=== PATIENT | male | born 1945 | race Caucasian/White ===

== ENCOUNTER 2020-03-28 07:34 | Observation (INO) | payer MEDICARE, OTHER ==
[~2020-03-28] VITALS: Ht 172.7 cm; Wt 59.3 kg
[2020-03-28] MEDS ORDERED: GABA300 PO (07:53)
[2020-03-28] MEDS ORDERED: LOSA25 PO (07:54)
[2020-03-28] MEDS ORDERED: TAMS.4ER PO (07:54)
[2020-03-28 08:17] LABS: BASOPHILS ABSOLUTE AUTO 0.08 K/mm3 (0.00-0.23); BASOPHILS PERCENT AUTO 1 % (0-2); EOSINOPHILS ABSOLUTE AUTO 0.04 K/mm3 (0.00-0.68); EOSINOPHILS PERCENT AUTO 0 % (0-6); Hematocrit 40.9 % (37.0-53.0); IMMATURE GRAN ABSOLUTE AUTO 0.04 K/mm3 (0.00-0.10); IMMATURE GRAN PERCENT AUTO 0 % (0-1); LYMPHOCYTES ABSOLUTE AUTO 1.11 K/mm3 (0.84-5.20); LYMPHOCYTES PERCENT AUTO 8 % (21-46); MONOCYTES ABSOLUTE AUTO 1.18 K/mm3 (0.16-1.47); MONOCYTES PERCENT AUTO 8 % (4-13); Mean Corpuscular HGB Conc 31.8 g/dL (31.5-36.5); Mean Corpuscular Volume 91 fL (80-100); Mean Platelet Volume 8.5 fL (9.1-12.4); NEUTROPHILS ABSOLUTE AUTO 11.84 K/mm3 (1.96-9.15); NEUTROPHILS PERCENT AUTO 83 % (41-73); Platelet Count 225 K/mm3 (150-400); RDW Coefficient Variation 13.5 % (11.7-14.2); RDW Standard Deviation 45.1 fL (35.1-46.3); Red Blood Cell Count 4.48 M/mm3 (4.30-5.90); White Blood Cell Count 14.29 K/mm3 (4.00-11.30)
[2020-03-28 08:36] LABS: Alanine Aminotransfer (ALT/SGP 18 U/L (12-78); Albumin, Blood 3.6 g/dL (3.4-5.0); Albumin/Globulin Ratio 0.9 (0.8-1.8); Alk Phos 88 U/L (50-136); Anion Gap 4 mmol/L (6-16); Aspartate Aminotrans (AST/SGOT 21 U/L (12-37); Blood Urea Nitrogen 24 mg/dL (8-24); Bun/Creatinine Ratio 29.1 (12.0-20.0); CO2, Blood 33 mmol/L (21-32); Calcium, Blood 9.8 mg/dL (8.5-10.1); Chloride, Blood 108 mmol/L (98-108); Creatinine, Blood 0.83 mg/dL (0.60-1.20); Globulin, Blood 4.1 g/dL (2.2-4.0); Glomerular Filtration Rate >60 (60-); Glucose, Blood 109 mg/dL (70-99); Potassium, Blood 3.9 mmol/L (3.5-5.5); Sodium, Blood 145 mmol/L (136-145); Total Protein, Blood 7.7 g/dL (6.4-8.2)
[2020-03-28] MEDS ORDERED: MIRT15 PO (13:01)
[2020-03-28] MEDS ORDERED: FLUDROCORTISON0.1 MG PO (13:02)
--- NOTE | 2020-03-28 16:27 | NUR ---
TRANSFER PT ARRIVED TO THE MEDICAL FLOOR FROM THE ER AT 1510, VIA [facility], PT IS ALERT YELLS OUT IN PAIN WITH TRANSFERS AND POSITION CHANGES, THE PT WAS ORIENTED TO THE CALL SYSTEM, THE PT WAS GIVEN DILAUDID FOR PAIN WITH GOOD RESULTS, THE PT ATTEMPTED TO HAVE A BM ON THE BSC WITH NO RESULT, A SUPPOSITORY WAS GIVEN THE PT IS RESTING/SLEEPING AT THIS TIME, WILL TRY ENEMA SOON IF NO RESULTS FROM SUPP, CALL LIGHT IN REACH
--- NOTE | 2020-03-28 17:44 | NUR ---
PT IS A/OX3, PLEASANT AND COOPERATIVE, [place], PT WAS A NEW ADMIT, PT IS HAVING RECTAL PAIN 10/10 DUE TO CONSTIPATION A SUPPOSITORY WAS TRIED WITH NO RESULTS WILL TRY THE ENEMA NOW, PT WAS GIVEN DILAUDID X1 SO FAR THIS SHIFT WITH GOOD RESULT, PT APPEARS TO BE BREATHING EASILY AT THIS TIME CALL LIGHT IN REACH, WILL CONTINUE TO MONITOR AND ASSESS FOR CHANGES
[2020-03-28 18:10] LABS: Source, Urine Clean Catch
[2020-03-28 18:13] LABS: Appearance, Urine Hazy (Clear); Bilirubin, Urine Neg (Neg); Blood, Urine 3+ (Neg); Color, Urine Yellow (P-Yellow); Glucose Qualitative, Urine Neg (Neg); Ketones, Urine 3+ (Neg); Leukocyte Esterase, Urine 3+ (Neg); Nitrite, Urine Neg (Neg); Protein, Urine 2+ (Neg); Urobilinogen, Urine NORM (Normal)
[2020-03-28 18:26] LABS: Calcium Oxalate Crystals Rare /hpf; White Blood Cells, Urine TNTC /hpf (0-5)
[2020-03-28 18:27] LABS: Bacteria Few /hpf; Squamous Epithelial Cells Rare /hpf (Few); Transitional Epithelial Cells Rare /hpf (0-Rare)
--- NOTE | 2020-03-28 20:52 | NUR ---
SPOKE W/HOSPITALIST PONCHO BLEDSOE REGARDING PT NPO STATUS AND ORDERS FOR PO COLACE AND MIRALAX. PONCHO STATES OK TO GIVE COLACE W/ SMALL SIP OF WATER, BUT HOLD MIRALAX. NOTED.
[2020-03-29 05:09] LABS: BASOPHILS ABSOLUTE AUTO 0.07 K/mm3 (0.00-0.23); BASOPHILS PERCENT AUTO 0 % (0-2); EOSINOPHILS ABSOLUTE AUTO 0.02 K/mm3 (0.00-0.68); EOSINOPHILS PERCENT AUTO 0 % (0-6); Hematocrit 40.2 % (37.0-53.0); Hemoglobin 12.4 g/dL (13.5-17.5); IMMATURE GRAN ABSOLUTE AUTO 0.04 K/mm3 (0.00-0.10); IMMATURE GRAN PERCENT AUTO 0 % (0-1); LYMPHOCYTES ABSOLUTE AUTO 1.24 K/mm3 (0.84-5.20); LYMPHOCYTES PERCENT AUTO 8 % (21-46); MONOCYTES ABSOLUTE AUTO 1.14 K/mm3 (0.16-1.47); MONOCYTES PERCENT AUTO 7 % (4-13); Mean Corpuscular HGB 28.6 pg (26.0-34.0); Mean Corpuscular HGB Conc 30.8 g/dL (31.5-36.5); Mean Corpuscular Volume 93 fL (80-100); Mean Platelet Volume 9.1 fL (9.1-12.4); NEUTROPHILS ABSOLUTE AUTO 13.69 K/mm3 (1.96-9.15); NEUTROPHILS PERCENT AUTO 85 % (41-73); Platelet Count 191 K/mm3 (150-400); RDW Coefficient Variation 13.6 % (11.7-14.2); RDW Standard Deviation 46.2 fL (35.1-46.3); Red Blood Cell Count 4.33 M/mm3 (4.30-5.90)
[2020-03-29 05:18] LABS: International Normalized Ratio 1.06; Prothrombin Time Results 11.3 Sec (9.7-11.5)
[2020-03-29 05:30] LABS: Magnesium, Blood 2.1 mg/dL (1.6-2.4)
[2020-03-29 05:31] LABS: Alanine Aminotransfer (ALT/SGP 146 U/L (12-78); Albumin, Blood 3.3 g/dL (3.4-5.0); Albumin/Globulin Ratio 0.9 (0.8-1.8); Alk Phos 188 U/L (50-136); Anion Gap 3 mmol/L (6-16); Aspartate Aminotrans (AST/SGOT 195 U/L (12-37); Bilirubin, Total 1.1 mg/dL (0.1-1.0); Blood Urea Nitrogen 16 mg/dL (8-24); Bun/Creatinine Ratio 18.8 (12.0-20.0); CO2, Blood 33 mmol/L (21-32); Calcium, Blood 9.1 mg/dL (8.5-10.1); Chloride, Blood 107 mmol/L (98-108); Creatinine, Blood 0.85 mg/dL (0.60-1.20); Globulin, Blood 3.6 g/dL (2.2-4.0); Glomerular Filtration Rate >60 (60-); Glucose, Blood 100 mg/dL (70-99); Potassium, Blood 3.9 mmol/L (3.5-5.5); Sodium, Blood 143 mmol/L (136-145); Total Protein, Blood 6.9 g/dL (6.4-8.2)
--- NOTE | 2020-03-29 07:51 | NUR ---
SHIFT SUMMARY: TEMP 99.0. BP ELEVATED WHEN PT ANXIOUS AND YELLING OUT WITH ABD PAIN. RECHECKED WHEN PT APPEARS MORE RELAXED AND CALM AND BP'S IMPROVED. PT REMAINS NPO. SUPPOSITORY AND ENEMA'S Q6HRS. PT HAD 1 MED, HARD STOOL DURING THE NIGHT. INTERMITTENTLY MO[place]. DILAUDID ADMINISTERED PER ORDERS, HELPFUL. PASSING GAS, BT PRESENT X4. NO N/V. IV ABT INFUSED PER ORDERS. 1 MAX ASSIST PIVOT TO BSC. PT SHAKEY DURING T/F. ASSISTS W/ TURNS IN BED. FC PATENT AND DRAINING TO GRAVITY. PT AA0 TO SELF AND PLACE BUT NOT TIME. NO ACUTE OVERNIGHT CHANGES.
--- NOTE | 2020-03-29 12:08 | NUR ---
DID NOT GIVE ENEMA AFTER FIRST SUPPOSITORY BECAUSE DR. GONZALEZ PUT IN DISCHARGE ORDERS FOR THE PT AND ADVISED THAT THE ENEMA WAS NOT NEEDED AT THIS TIME.
[2020-03-29] MEDS ORDERED: MIRALAX17 GM PO (14:19)
[2020-03-29] MEDS ORDERED: SENN187 PO (14:20)
--- NOTE | 2020-03-29 17:00 | NUR ---
DISCHARGE SUMMARY PT ALERT AND COOPERATIVE WITH CARE. PT HAD TWO BOWEL MOVEMENTS THIS SHIFT. ONE WAS INCONT AND THE OTHER WAS CONT IN THE BSC. PT'S PAIN HAS GREATLY IMPROVED THIS SHIFT. ABD IS FLAT AND NONTENDER. DID NOT GIVE ENEMAS DUE TO THE PT DISCHARGING AND AT THE RECOMMENDATION OF DR. GONZALEZ. IV AND ROHITH ROE'Manuel WNL. PT LEFT WITH FAMILY MEMBER.
== END 2020-03-29 16:38 | disposition home or self-care (01) ==
LOC: ER 07:34 → SURS 07:35 → MEDS 13:28 → ER 13:28 → MEDS 13:28 → SURS 15:14 → MEDS 03-29 11:00 → ENPENDDIS 03-29 11:04 → MEDS 03-29 16:38
PROVIDERS: Emergency Medicine; Nurse Practitioner Acute Care; ADMIT Internal Medicine
DX: K52.89 Other specified noninfective gastroenteritis and colitis (principal); K56.41 Fecal impaction; I10 Essential (primary) hypertension; N40.0 Benign prostatic hyperplasia without lower urinary tract symptoms; Z88.5 Allergy status to narcotic agent; Z79.899 Other long term (current) drug therapy; Z87.11 Personal history of peptic ulcer disease; Z86.73 Personal history of transient ischemic attack (TIA), and cerebral infarction without residual deficits; Z23 Encounter for immunization
CPT/HCPCS: 36415; 51702; 51798; 71045; 74177; 80053; 81001; 83605; 83690; 83735; 85025; 85610; 87086; 93005; 93010; 96365; 96374; 96374-59; 96375; 96375-59; 96376-59; 99285-25; G0378; J1170; J2405; J2543; J7120; Q9967